=== PATIENT | male | born 1945 | race Caucasian/White ===

== ENCOUNTER 2019-10-27 10:49 | Emergency (ER) | payer BC, MEDICARE ==
[2019-10-27] MEDS ORDERED: Bacitracin Oint 1 GM U/D Packet TOP ONE (13:26)
--- NOTE | 2019-10-27 13:55 | EDM.PDOC ---
ED HPI GENERAL MEDICAL PROBLEM - General Chief Complaint: Laceration Stated Complaint: FISH HOOK IN FINGER Time Seen by Provider: 10/27/19 13:45 Source of Information: Reports: Patient History Limitations: Reports: No Limitations - History of Present Illness INITIAL COMMENTS - FREE TEXT/NARRATIVE: [place] caught in left index finger today. Onset: Today, Sudden Location: Reports: Lower Extremity, Left Associated Symptoms: Reports: No Other Symptoms Review of Systems - Review of Systems Review Of Systems: See Below Constitutional: Reports: No Symptoms Respiratory: Reports: No Symptoms Cardiovascular: Reports: No Symptoms Musculoskeletal: Reports: Hand Pain Skin: Reports: Other (fish hook in finger) Neurological: Reports: No Symptoms Psychiatric: Reports: No Symptoms ED EXAM, GENERAL - Physical Exam Exam: See Below Exam Limited By: No Limitations General Appearance: Alert, WD/WN, No Apparent Distress Throat/Mouth: Normal Inspection Head: Atraumatic, Normocephalic Neck: Normal Inspection Respiratory/Chest: No Respiratory Distress, Lungs Clear Cardiovascular: Normal Peripheral Pulses Extremities: Other (fish hook left index fnger DIP) Skin Exam: Warm, Dry, Other (fish hook in left index finger) ED TRAUMA EXTREMITY PROCEDURES - Foreign Body Removal Indication:: fb removal Consent Obtained: Patient Performing Doctor:: Dannie López Anesthesia Type: Local Findings:: fish hook left index finger Complications:: No Comments:: fish hook easily removed Course - Vital Signs Last Recorded V/S: Last Vital Signs Temp 98.2 F 10/27/19 13:23 Pulse 60 10/27/19 13:23 Resp 16 10/27/19 13:23 BP 154/65 H 10/27/19 13:23 Pulse Ox 100 10/27/19 13:23 - Orders/Labs/Meds Meds: Medications Discontinued Medications Generic Name Dose Route Start Last Admin Trade Name Freq PRN Reason Stop Dose Admin Bacitracin 1 dose 10/27/19 13:26 Bacitracin Oint 1 Gm TOP 10/27/19 13:27 ONETIME ONE Lidocaine HCl 5 ml 10/27/19 13:26 Xylocaine-Mpf 1% INJECT 10/27/19 13:27 ONETIME ONE - Re-Assessments/Exams Free Text/Narrative Re-Assessment/Exam: 10/27/19 13:56 Fish hook removed from left index finger Departure - Departure Time of Disposition: 14:00 Disposition: DC/[facility]fer to [facility] Condition: Good Clinical Impression: Removal of foreign body, Fish hook injury of finger - Discharge Information *PRESCRIPTION DRUG MONITORING PROGRAM REVIEWED*: Not Applicable *COPY OF PRESCRIPTION DRUG MONITORING REPORT IN PATIENT HAZEL: Not Applicable Instructions: Laceration Care, Adult Referrals: PCP,None [Primary Care Provider] - Forms: ED Department Discharge Additional Instructions: keep your finger clean. Sepsis Event Note (ED) - Evaluation Sepsis Screening Result: No Definite Risk - Focused Exam Vital Signs: Vital Signs Temp Pulse Resp BP Pulse Ox 10/27/19 13:23 98.2 F 60 16 154/65 H 100
== END 2019-10-27 13:45 | disposition home or self-care (01) ==
LOC: LB.ED 10:49
DX: S60.451A Superficial foreign body of left index finger, initial encounter (principal); W45.8XXA Other foreign body or object entering through skin, initial encounter
CPT/HCPCS: 99283; J2001